=== PATIENT | male | born 1985 | race Caucasian/White ===

== ENCOUNTER 2022-05-03 13:09 | Outpatient (REF) | payer OTHER, MEDICARE, SELFPAY ==
--- NOTE | 2022-05-03 | ECG_ITS ---
Test Reason : PREOP Blood Pressure : / mmHG Vent. Rate : 065 BPM Atrial Rate : 065 BPM P-R Int : 196 ms QRS Dur : 094 ms QT Int : 424 ms P-R-T Axes : 008 060 027 degrees QTc Int : 440 ms Normal sinus rhythm Normal ECG No previous ECGs available Referred By: Maurisio Benton Electronically Signed By:EVE GILBERT
[2022-05-03 13:27] LABS: MANUAL DIFF FLAG NO
[2022-05-03 14:20] LABS: Basophils Percent Auto 0.5 % (0-2); Eosinophils Absolute Auto 0.1 X10*3/uL (0.0-0.4); Eosinophils Percent Auto 1.5 % (0-4); Hematocrit 45.4 % (42.0-52.0); Hemoglobin 16.3 g/dl (14.0-18.0); Imm Gran Abs Auto 0.04 X10*3/uL (0.00-0.03); Imm Gran Pct Auto 0.6 % (0.0-0.4); Lymphocytes Absolute Auto 2.3 X10*3/uL (1.2-4.9); Lymphocytes Percent Auto 34.6 % (20-40); Mean Corpuscular HGB Conc 35.9 g/dl (31.0-36.0); Mean Corpuscular Hemoglobin 31.2 pg (27.0-33.0); Mean Platelet Volume 10.1 fL (9.4-12.4); Monocytes Absolute Auto 0.5 X10*3/uL (0.1-1.2); Monocytes Percent Auto 6.8 % (2-11); Neutrophils Absolute Auto 3.7 x10*3/uL (2.0-8.3); Platelet Count 250 X10*3/uL (160-400); Red Blood Count 5.22 X10*6/uL (4.60-5.80); Red Cell Distribution Width 12.8 % (11.0-16.0); White Blood Count 6.6 X10*3/uL (4.8-10.8)
[2022-05-03 14:50] LABS: Alanine Aminotransferase 12 U/L (0-40); Alkaline Phosphatase 96 U/L (39-117); Anion Gap 17 (12-20); Aspartate Amino Transferase 13 U/L (5-37); Bilirubin Total 0.8 mg/dL (0.0-1.0); Blood Urea Nitrogen 16 mg/dL (9-16); Calcium 9.6 mg/dL (8.4-10.2); Carbon Dioxide 21 mmol/L (22-29); Chloride 105 mmol/L (96-108); Estimated Glomerular Filt Rate > 60; Glucose Random 91 mg/dL (60-115); Potassium 4.1 mmol/L (3.3-5.1); Sodium 139 mmol/L (135-145); Total Protein 7.8 g/dL (6.5-8.0)
[2022-05-03 15:02] LABS: Thyroid Stimulating Hormone 1.96 uIU/mL (0.32-4.0)
== END 2022-05-03 13:10 | disposition home or self-care (01) ==
LOC: HO.LAB 13:09
PROVIDERS: Visit Provider Psychiatry & Neurology Psychiatry
DX: Z01.818 Encounter for other preprocedural examination (principal); F33.2 Major depressive disorder, recurrent severe without psychotic features; F43.10 Post-traumatic stress disorder, unspecified
CPT/HCPCS: 36415; 80053; 84443; 85025; 93005

== ENCOUNTER 2022-05-22 05:47 | Day surgery (SDC) | payer OTHER, SELFPAY ==
[2022-05-22] VITALS (7 sets, daily range): BP systolic 123–160; BP diastolic 83–105; PULSE 68–84; RESP 12–20; TEMP 36.2–36.9; O2SAT 92–96; BMI 38.0
[2022-05-22 06:50] LABS: COVID-19 Test Negative (Negative); IDNOW Serial# 55D5AD1C
--- NOTE | 2022-05-22 06:50 | P.CONAN_ITS ---
[facility] Family History Family history of problems with anesthesia: No Surgical History History of Problems with Anesthesia: No Social History Social History Patient Tobacco Use Status: Current everyday Tobacco user Tobacco use type: Cigarette Are you DNR?: No Advance Directives: No Advance Directives Information Provided: Yes Meds Allergies Allergy/AdvReac Type Severity Reaction Status Date / Time divalproex sodium Allergy Unknown Verified 05/22/22 06:13 [From [facility]] Exam Exam Date and Time: May 22, 2022 0650 Height,Weight and Vital Signs: Height 6 ft Weight 127.006 kg Last Vital Signs Temp 97.1 F 05/22/22 06:44 Pulse 68 05/22/22 06:44 Resp 14 05/22/22 06:44 BP 123/83 05/22/22 06:44 Pulse Ox 96 05/22/22 06:44 O2 Del Method 05/22/22 06:44 Airway Mallampati Class: III (Narrow palate, implant 3 (2 front top, one back top), perm bridge lower left) TM Dist: >3cm Neck ROM: Full Heart: rrr Lungs: cta Assessment and Plan Assessment Anesthesia Assessment: Anesthesia Plan Discussed (Reviewed history, mo cardiac, respiratory, DM one psychological condition) and Chart Reviewed Final Anesthetic Review Family History of Problems with Anesthesia: No History of Problems with Anesthesia: No NPO: Yes ASA Class: III Final Preanesthetic Review: No Changes in Pt Med Stat, Meds/Allgs Chart Reviewed and Consent Obtained/Reviewed Patient Risk: Intermediate Procedure Risk: Intermediate Anesthetic Plan Anesthetic Plan: GA Disposition: Standard PACU
--- NOTE | 2022-05-22 07:14 | P.HPSUR_ITS ---
Pre-Procedural Eval Section A Date of Service: 05/22/22 The patient is an INPATIENT: No Changes since office visit: Yes Cold of Flu in the past 2 weeks, Yes New Medical Problems, Yes Changes in Medication and Yes Patient answered all questions The History & Physical has been completed within 30 days and I have reviewed it.: Yes Section B Chief Complaint: depression Details of Present Illness: Hx of depression, new course of ECT Relevant Family History (Specify if Yes): Yes Relevant Social History: None Present Medications: None Medical History: No relevant PMH History of Previous Operations: No relevant previous surgery Allergies: Allergies Allergy/AdvReac Type Severity Reaction Status Date / Time divalproex sodium Allergy Unknown Verified 05/22/22 06:13 [From [facility]] Review of Systems Sugical H&P ROS: Negative: Constitution, Cardiovascular, Respiratory, Neurological, Psychiatric, Hem-Onc, Allergic/Immunologic, Gastrointestinal, Genitourinary, Musculoskeletal, Integumentary, Endocrine and Eyes/Ears/Nose/Throat Exam Surgical H&P Exam: Normal: HEENT, Normal: Heart, Normal: Lungs, Normal: Extr emities, Normal: Abdomen, Normal: Skin and Normal: Neurological Plan Diagnosis/Plan: Unchanged I have reviewed the history and physical and performed a pertinent physical examination on my patient. No changes have occurred unless specified.
--- NOTE | 2022-05-22 07:53 | HO.ECTPROC ---
ECT Procedure Note Diagnosis/Treatment Date of Service: 05/22/22 Diagnosis: Bipolar disorder Current Treatment Number: 1 Treatment: Series Interval Clinical Notes: The patient reported episode of depression, antidepressants worsened his mood with arlette. No prior ECTs. Currently on Gabapentin and Vraylar. ECT Settings Device: THYMATRON DGx Electrode Placement: Right Unilateral Program/Pulse Width: 0.25 Energy Percent: 100 Seizure Duration By EEG (in seconds): 31 By Motor Observation (in seconds): 22 Medications Administration General Anesthetic: Etomidate (18) Muscle Relaxant: Succinylcholine (100) Ancillary Medications Analgesics: Torodol - Pre ECT Anti-emetics: Zofran - Pre ECT Miscillaneous Medications: Propofol and Midazolam Airway Management Airway Management: Bag Mask Ventilation Treatment Recommendations No Changes Recommended: No change Pt Tolerated Procedure w/o Issue: Yes
== END 2022-05-22 09:16 | disposition home or self-care (01) ==
PROVIDERS: Visit Provider Psychiatry & Neurology Psychiatry
PROC: (CPT 90870; principal; 2022-05-22 14:30)
DX: F31.4 Bipolar disorder, current episode depressed, severe, without psychotic features (principal); F43.10 Post-traumatic stress disorder, unspecified; Z79.899 Other long term (current) drug therapy; Z88.8 Allergy status to other drugs, medicaments and biological substances; F17.210 Nicotine dependence, cigarettes, uncomplicated
CPT/HCPCS: 87635; 90870; J0330; J1885; J2250; J2405

== ENCOUNTER 2022-05-24 05:46 | Day surgery (SDC) | payer OTHER, SELFPAY ==
[2022-05-24 06:37] VITALS: BP 135/88; PULSE 70; RESP 18; TEMP 36.4; O2SAT 97; BMI 38.0
[2022-05-24 06:48] LABS: COVID-19 Test Negative (Negative); IDNOW Serial# 9DB6401D
--- NOTE | 2022-05-24 07:21 | P.HPSUR_ITS ---
Pre-Procedural Eval Section A Date of Service: 05/24/22 The patient is an INPATIENT: No Changes since office visit: Yes New Medical Problems and Yes Patient answered all questions; No Cold of Flu in the past 2 weeks and No Changes in Medication The History & Physical has been completed within 30 days and I have reviewed it.: Yes Section B Chief Complaint: depression Allergies: Allergies Allergy/AdvReac Type Severity Reaction Status Date / Time divalproex sodium Allergy Unknown Verified 05/22/22 06:13 [From [facility]] Plan I have reviewed the history and physical and performed a pertinent physical examination on my patient. No changes have occurred unless specified.
--- NOTE | 2022-05-24 07:55 | HO.ECTPROC ---
ECT Procedure Note Diagnosis/Treatment Date of Service: 05/24/22 Diagnosis: Bipolar disorder Previous ECT Date: 05/22/22 Current Treatment Number: 2 Treatment: Series ECT Settings Device: THYMATRON DGx Electrode Placement: Bifrontal (changed to Bifrontal since pt required increase doses of etomidate (38mg) and Propofol (50mg). ) Program/Pulse Width: 0.50 Energy Percent: 100 Seizure Duration By EEG (in seconds): 72 Medications Administration General Anesthetic: Etomidate (18mg + 20g) and Propofol (50mg pre and 50mg post) Muscle Relaxant: Succinylcholine (120mg+60mg) Ancillary Medications Analgesics: Torodol - Pre ECT Anti-emetics: Zofran - Pre ECT Cardiovascular Medications: Glycopyrrolate (pre) Miscillaneous Medications: Midazolam (2mg) Airway Management Airway Management: Bag Mask Ventilation Treatment Recommendations Electrode Placement: Right Unilateral Program/Pulse Width: 0.50 Energy Percent: 100 Notes: pt told to hold gabapentin at nightime prior to procedure (and morning of) Can change back to Right Unilateral with 0.5 pulse width. Switched to BiFrontal since patient required increased doses of Etomidate and then Propofol. for next tx, recomended doses: Etomidate 20mg Suc 160mg (+/- brooklynn 5mg)
[2022-05-24 08:05] VITALS: BP 136/85; PULSE 80; RESP 20; TEMP 36.9; O2SAT 95
[2022-05-24 08:10] VITALS: BP 140/75; PULSE 90; RESP 20; O2SAT 94
[2022-05-24 08:15] VITALS: BP 125/82; PULSE 74; RESP 17; O2SAT 94
--- NOTE | 2022-05-24 08:19 | P.CONAN_ITS ---
[facility] Past Medical History Medical History (Updated 05/22/22 @ 07:23 by Cathryn Gallegos RN) Bipolar 1 disorder PTSD (post-traumatic stress disorder) Family History Family history of problems with anesthesia: No Surgical History Surgical History (Updated 05/22/22 @ 07:24 by Cathryn Gallegos RN) History of mandibular surgery History of Problems with Anesthesia: No Social History Social History Patient Tobacco Use Status: Current everyday Tobacco user Tobacco use type: Cigarette Advance Directives: No Advance Directives Information Provided: Yes Meds Allergies Allergy/AdvReac Type Severity Reaction Status Date / Time divalproex sodium Allergy Unknown Verified 05/22/22 06:13 [[facility]] Exam Exam Date and Time: May 24, 2022 0819 Height,Weight and Vital Signs: Height 6 ft Weight 127.006 kg Last Vital Signs Temp 98.5 F 05/24/22 08:05 Pulse 90 05/24/22 08:10 Resp 20 05/24/22 08:10 BP 140/75 H 05/24/22 08:10 Pulse Ox 94 05/24/22 08:10 O2 Del Method 05/24/22 08:10 O2 Flow Rate 3 05/24/22 08:10 Pertinent Lab Results Pertinent Lab Results: Laboratory Tests 05/24/22 06:15 COVID-19 ([facility]) Negative COVID-19 Clin Com See Note Airway Mallampati Class: III TM Dist: >3cm Neck ROM: Full Assessment and Plan Assessment Anesthesia Assessment: Anesthesia Plan Discussed and Chart Reviewed Final Anesthetic Review Family History of Problems with Anesthesia: No History of Problems with Anesthesia: No NPO: Yes ASA Class: III Final Preanesthetic Review: No Changes in Pt Med Stat, Meds/Allgs Chart Reviewed, Consent Obtained/Reviewed and Anes Risks/Benef Reviewed Patient Risk: Intermediate Procedure Risk: Intermediate Anesthetic Plan Anesthetic Plan: GA Disposition: Standard PACU
[2022-05-24 08:20] VITALS: BP 125/79; PULSE 75; RESP 16; O2SAT 95
[2022-05-24 08:35] VITALS: BP 127/72; PULSE 72; RESP 16; TEMP 36.9; O2SAT 95
== END 2022-05-24 09:14 ==
LOC: HO.SSS 05:47
PROVIDERS: Visit Provider Psychiatry & Neurology Psychiatry
PROC: (CPT 90870; principal; 2022-05-24 07:30)
DX: F31.4 Bipolar disorder, current episode depressed, severe, without psychotic features (principal); F43.10 Post-traumatic stress disorder, unspecified; Z79.899 Other long term (current) drug therapy; F17.210 Nicotine dependence, cigarettes, uncomplicated; Z88.8 Allergy status to other drugs, medicaments and biological substances; Z20.822 Contact with and (suspected) exposure to COVID-19
CPT/HCPCS: 87635; 90870; J0330; J1885; J2250; J2405

== ENCOUNTER 2022-05-26 05:49 | Day surgery (SDC) | payer OTHER, SELFPAY ==
[2022-05-26 06:52] LABS: COVID-19 Test Negative (Negative); IDNOW Serial# 16C4AD1C
--- NOTE | 2022-05-26 07:05 | P.CONAN_ITS ---
[facility] Past Medical History Medical History (Updated 05/22/22 @ 07:23 by Cathryn Gallegos RN) Bipolar 1 disorder PTSD (post-traumatic stress disorder) Family History Family history of problems with anesthesia: No Surgical History Surgical History (Updated 05/22/22 @ 07:24 by Cathryn Gallegos RN) History of mandibular surgery History of Problems with Anesthesia: No Social History Social History Patient Tobacco Use Status: Current everyday Tobacco user Tobacco use type: Cigarette Advance Directives: No Advance Directives Information Provided: Yes Meds Allergies Allergy/AdvReac Type Severity Reaction Status Date / Time divalproex sodium Allergy Unknown Verified 05/22/22 06:13 [From Depakote] Exam Exam Date and Time: May 26, 2022 07 Pertinent Lab Results Pertinent Lab Results: Laboratory Tests 05/26/22 06:20 COVID-19 ([facility]) Negative COVID-19 Clin Com See Note Airway Mallampati Class: II (Implant top front 3, bridge perm ) TM Dist: >3cm Neck ROM: Full Heart: rrr Lungs: cta Assessment and Plan Assessment Anesthesia Assessment: Anesthesia Plan Discussed and Chart Reviewed Final Anesthetic Review Family History of Problems with Anesthesia: No History of Problems with Anesthesia: No NPO: Yes ASA Class: III Final Preanesthetic Review: No Changes in Pt Med Stat, Meds/Allgs Chart Reviewed and Consent Obtained/Reviewed Patient Risk: Intermediate Procedure Risk: Intermediate Anesthetic Plan Anesthetic Plan: GA Disposition: Standard PACU
[2022-05-26 07:11] VITALS: BMI 38.0
--- NOTE | 2022-05-26 07:46 | MHC.SHP ---
Pre-Procedural Eval Section A Date of Service: 05/26/22 The patient is an INPATIENT: No Changes since office visit: Yes Patient answered all questions; No Cold of Flu in the past 2 weeks, No New Medical Problems and No Changes in Medication The History & Physical has been completed within 30 days and I have reviewed it.: Yes Section B Chief Complaint: depression Allergies: Allergies Allergy/AdvReac Type Severity Reaction Status Date / Time divalproex sodium Allergy Unknown Verified 05/22/22 06:13 [From [facility]] Plan I have reviewed the history and physical and performed a pertinent physical examination on my patient. No changes have occurred unless specified.
--- NOTE | 2022-05-26 07:47 | HO.ECTPROC ---
ECT Procedure Note Diagnosis/Treatment Date of Service: 05/26/22 Diagnosis: Bipolar disorder Previous ECT Date: 05/24/22 Current Treatment Number: 3 Treatment: Series Interval Clinical Notes: pt feeling somewhat better no c/o side effects ECT Settings Device: THYMATRON DGx Electrode Placement: Bifrontal (changed to Bifrontal since pt required increase doses of etomidate (38mg) and Propofol (50mg). ) Program/Pulse Width: 0.50 Energy Percent: 100 Medications Administration General Anesthetic: Etomidate (20) Muscle Relaxant: Succinylcholine (160 mg ) and Rocuronium (5mg) Ancillary Medications Analgesics: Torodol - Pre ECT Anti-emetics: Zofran - Pre ECT Cardiovascular Medications: Glycopyrrolate (pre) Miscillaneous Medications: Propofol and Midazolam (2mg) Airway Management Airway Management: Bag Mask Ventilation Treatment Recommendations Electrode Placement: Right Unilateral Program/Pulse Width: 0.50 Energy Percent: 100 Notes: continue tx bf
[2022-05-26 08:05] VITALS: BP 142/77; PULSE 87; RESP 16; TEMP 36.8; O2SAT 95
[2022-05-26 08:10] VITALS: BP 141/88; PULSE 77; RESP 14; O2SAT 96
[2022-05-26 08:15] VITALS: BP 120/73; PULSE 74; RESP 18; O2SAT 94
[2022-05-26 08:19] VITALS: BP 130/77; PULSE 80; RESP 13; O2SAT 95
[2022-05-26 08:34] VITALS: BP 139/76; PULSE 76; RESP 12; O2SAT 94
[2022-05-26 08:47] VITALS: BP 132/90; PULSE 74; RESP 15; TEMP 36.8; O2SAT 95
== END 2022-05-26 09:02 | disposition home or self-care (01) ==
PROVIDERS: Visit Provider Psychiatry & Neurology Psychiatry
PROC: (CPT 90870; principal; 2022-05-26 08:00)
DX: F31.4 Bipolar disorder, current episode depressed, severe, without psychotic features (principal); F43.10 Post-traumatic stress disorder, unspecified; Z79.899 Other long term (current) drug therapy; Z88.8 Allergy status to other drugs, medicaments and biological substances; F17.210 Nicotine dependence, cigarettes, uncomplicated; Z20.822 Contact with and (suspected) exposure to COVID-19
CPT/HCPCS: 87635; 90870; J0330; J1885; J2250; J2405

== ENCOUNTER 2022-05-29 06:10 | Day surgery (SDC) | payer OTHER, SELFPAY ==
[2022-05-29] VITALS (7 sets, daily range): BP systolic 118–146; BP diastolic 64–91; PULSE 74–87; RESP 10–21; TEMP 35.8–36.6; O2SAT 95; BMI 38.0
[2022-05-29 06:46] LABS: COVID-19 Test Negative (Negative); IDNOW Serial# 16C4AD1C
--- NOTE | 2022-05-29 06:52 | P.CONAN_ITS ---
[facility] Past Medical History Medical History (Updated 05/22/22 @ 07:23 by Cathryn Gallegos RN) Bipolar 1 disorder PTSD (post-traumatic stress disorder) Family History Family history of problems with anesthesia: No Surgical History Surgical History (Updated 05/22/22 @ 07:24 by Cathryn Gallegos RN) History of mandibular surgery History of Problems with Anesthesia: No Social History Social History Patient Tobacco Use Status: Current everyday Tobacco user Tobacco use type: Cigarette Advance Directives: No Advance Directives Information Provided: Yes Meds Allergies Allergy/AdvReac Type Severity Reaction Status Date / Time divalproex sodium Allergy Unknown Verified 05/22/22 06:13 [From Depakote] Exam Exam Date and Time: May 29, 2022 0652 Height,Weight and Vital Signs: Height 6 ft Weight 127.006 kg Last Vital Signs Temp 96.4 F L 05/29/22 06:27 Pulse 74 05/29/22 06:27 Resp 18 05/29/22 06:27 BP 141/65 H 05/29/22 06:27 Pulse Ox 95 05/29/22 06:27 O2 Del Method 05/29/22 06:27 Pertinent Lab Results Pertinent Lab Results: Laboratory Tests 05/29/22 06:14 COVID-19 ([facility]) Negative COVID-19 Clin Com See Note Airway Mallampati Class: II (Bridgetop, caps and imolant in front) TM Dist: >3cm Neck ROM: Full Heart: rrr Lungs: cta Assessment and Plan Assessment Anesthesia Assessment: Anesthesia Plan Discussed and Chart Reviewed Final Anesthetic Review Family History of Problems with Anesthesia: No History of Problems with Anesthesia: No NPO: Yes ASA Class: III Final Preanesthetic Review: No Changes in Pt Med Stat, Meds/Allgs Chart Reviewed and Consent Obtained/Reviewed Patient Risk: Intermediate Procedure Risk: Intermediate Anesthetic Plan Anesthetic Plan: GA Disposition: Standard PACU
--- NOTE | 2022-05-29 07:12 | P.HPSUR_ITS ---
Pre-Procedural Eval Section A Date of Service: 05/29/22 The patient is an INPATIENT: No Changes since office visit: Yes Changes in Medication and Yes Patient answered all questions; No Cold of Flu in the past 2 weeks and No New Medical Problems The History & Physical has been completed within 30 days and I have reviewed it.: Yes Section B Chief Complaint: depression Allergies: Allergies Allergy/AdvReac Type Severity Reaction Status Date / Time divalproex sodium Allergy Unknown Verified 05/22/22 06:13 [From [facility]] Plan I have reviewed the history and physical and performed a pertinent physical examination on my patient. No changes have occurred unless specified.
--- NOTE | 2022-05-29 07:13 | HO.ECTPROC ---
ECT Procedure Note Diagnosis/Treatment Date of Service: 05/29/22 Diagnosis: Bipolar disorder Previous ECT Date: 05/29/22 Current Treatment Number: 4 Treatment: Series Interval Clinical Notes: no changes; pt feeling better; no complaints of side-effects ECT Settings Device: THYMATRON DGx Electrode Placement: Bifrontal Program/Pulse Width: 0.50 Energy Percent: 100 Seizure Duration By EEG (in seconds): 33 Medications Administration General Anesthetic: Etomidate (20mg) Muscle Relaxant: Succinylcholine (160mg) and Rocuronium (5mg) Ancillary Medications Analgesics: Torodol - Pre ECT (30mg) and Other Anti-emetics: Zofran - Pre ECT (4mg) Cardiovascular Medications: Glycopyrrolate (0.4mg pre) Miscillaneous Medications: Propofol (30mg post) and Midazolam (2mg Post) Airway Management Airway Management: Bag Mask Ventilation Treatment Recommendations No Changes Recommended: No change Notes: continue current tx regimen Pt Tolerated Procedure w/o Issue: Yes
[2022-05-29] MEDS: ondansetron HCL 4 MG/2 ML VIAL IVPUSH (08:20)
== END 2022-05-29 08:52 | disposition home or self-care (01) ==
PROVIDERS: Visit Provider Psychiatry & Neurology Psychiatry
PROC: (CPT 90870; principal; 2022-05-29 07:00)
DX: F31.4 Bipolar disorder, current episode depressed, severe, without psychotic features (principal); F43.10 Post-traumatic stress disorder, unspecified; Z88.8 Allergy status to other drugs, medicaments and biological substances; Z79.899 Other long term (current) drug therapy; F17.210 Nicotine dependence, cigarettes, uncomplicated; Z20.822 Contact with and (suspected) exposure to COVID-19
CPT/HCPCS: 87635; 90870; J0330; J1885; J2250; J2405

== ENCOUNTER 2022-05-31 05:46 | Day surgery (SDC) | payer OTHER, SELFPAY ==
[2022-05-31 06:31] VITALS: BP 126/68; PULSE 65; RESP 16; TEMP 36.3; O2SAT 96; BMI 5565.4
--- NOTE | 2022-05-31 06:39 | HO.ANESPROP2 ---
[facility] Past Medical History Medical History (Updated 05/22/22 @ 07:23 by Cathryn Gallegos RN) Bipolar 1 disorder PTSD (post-traumatic stress disorder) Family History Family history of problems with anesthesia: No Surgical History Surgical History (Updated 05/22/22 @ 07:24 by Cathryn Gallegos RN) History of mandibular surgery History of Problems with Anesthesia: No Social History Social History Patient Tobacco Use Status: Current everyday Tobacco user Tobacco use type: Cigarette Advance Directives: No Advance Directives Information Provided: Yes Meds Allergies Allergy/AdvReac Type Severity Reaction Status Date / Time divalproex sodium Allergy Unknown Verified 05/22/22 06:13 [From [facility]] Exam Exam Date and Time: May 31, 2022 0639 Height,Weight and Vital Signs: Height 6 in Weight 129.274 kg Last Vital Signs Temp 97.4 F 05/31/22 06:31 Pulse 65 05/31/22 06:31 Resp 16 05/31/22 06:31 BP 126/68 05/31/22 06:31 Pulse Ox 96 05/31/22 06:31 O2 Del Method 05/31/22 06:31 Airway Mallampati Class: II (Implantnand caps on too front) TM Dist: >3cm Neck ROM: Full Heart: rrr Lungs: cta Assessment and Plan Assessment Anesthesia Assessment: Anesthesia Plan Discussed and Chart Reviewed Final Anesthetic Review Family History of Problems with Anesthesia: No History of Problems with Anesthesia: No NPO: Yes ASA Class: III Final Preanesthetic Review: No Changes in Pt Med Stat, Meds/Allgs Chart Reviewed and Consent Obtained/Reviewed Patient Risk: Intermediate Procedure Risk: Intermediate Anesthetic Plan Anesthetic Plan: GA Disposition: Standard PACU
[2022-05-31 06:51] LABS: COVID-19 Test Negative (Negative); IDNOW Serial# 16C4AD1C
--- NOTE | 2022-05-31 06:57 | P.HPSUR_ITS ---
Pre-Procedural Eval Section A Date of Service: 05/31/22 The patient is an INPATIENT: No Changes since office visit: No Cold of Flu in the past 2 weeks, No New Medical Problems, No Changes in Medication and No Patient answered all questions The History & Physical has been completed within 30 days and I have reviewed it.: Yes Section B Chief Complaint: depression Allergies: Allergies Allergy/AdvReac Type Severity Reaction Status Date / Time divalproex sodium Allergy Unknown Verified 05/22/22 06:13 [From [facility]] Plan I have reviewed the history and physical and performed a pertinent physical examination on my patient. No changes have occurred unless specified.
--- NOTE | 2022-05-31 07:22 | HO.ECTPROC ---
ECT Procedure Note Diagnosis/Treatment Date of Service: 05/31/22 Diagnosis: Bipolar disorder Previous ECT Date: 05/29/22 Current Treatment Number: 5 Treatment: Series Interval Clinical Notes: The patient reported improvement of dysphoria with ECT. Denies side effects, content with the treatment, feeling hopeful that he would be better soon. ECT Settings Device: THYMATRON DGx Electrode Placement: Bifrontal Program/Pulse Width: 0.50 Energy Percent: 100 Seizure Duration By EEG (in seconds): 51 By Motor Observation (in seconds): 48 Medications Administration General Anesthetic: Etomidate (20) and Propofol Muscle Relaxant: Succinylcholine (160) and Rocuronium (5) Ancillary Medications Analgesics: Torodol - Pre ECT Anti-emetics: Zofran - Pre ECT Cardiovascular Medications: Glycopyrrolate Miscillaneous Medications: Midazolam Airway Management Airway Management: Bag Mask Ventilation Treatment Recommendations No Changes Recommended: No change Pt Tolerated Procedure w/o Issue: Yes
[2022-05-31 07:30] VITALS: BP 127/70; PULSE 75; RESP 16; TEMP 36.6; O2SAT 94
[2022-05-31 07:35] VITALS: BP 131/79; PULSE 74; RESP 14; O2SAT 94
[2022-05-31 07:40] VITALS: BP 128/70; PULSE 79; RESP 17; O2SAT 95
[2022-05-31 07:46] VITALS: BP 134/69; PULSE 73; RESP 16; O2SAT 95
[2022-05-31 08:02] VITALS: BP 127/72; PULSE 75; RESP 18; TEMP 36.7; O2SAT 96
== END 2022-05-31 09:08 | disposition home or self-care (01) ==
PROVIDERS: Visit Provider Psychiatry & Neurology Psychiatry
PROC: (CPT 90870; principal; 2022-05-31 07:00)
DX: F31.4 Bipolar disorder, current episode depressed, severe, without psychotic features (principal); F43.10 Post-traumatic stress disorder, unspecified; Z88.8 Allergy status to other drugs, medicaments and biological substances; F17.210 Nicotine dependence, cigarettes, uncomplicated; Z20.822 Contact with and (suspected) exposure to COVID-19
CPT/HCPCS: 87635; 90870; J0330; J1885; J2250; J2405

== ENCOUNTER 2022-06-02 05:44 | Day surgery (SDC) | payer OTHER, SELFPAY ==
[2022-06-02] VITALS (7 sets, daily range): BP systolic 118–165; BP diastolic 76–113; PULSE 67–126; RESP 12–18; TEMP 36.3–36.8; O2SAT 95–99; BMI 38.6
[2022-06-02 06:40] LABS: COVID-19 Test Negative (Negative); IDNOW Serial# 16C4AD1C
--- NOTE | 2022-06-02 06:46 | P.CONAN_ITS ---
[facility] Past Medical History Medical History (Updated 05/22/22 @ 07:23 by Cathryn Gallegos RN) Bipolar 1 disorder PTSD (post-traumatic stress disorder) Family History Family history of problems with anesthesia: No Surgical History Surgical History (Updated 05/22/22 @ 07:24 by Cathryn Gallegos RN) History of mandibular surgery History of Problems with Anesthesia: No Social History Social History Patient Tobacco Use Status: Current everyday Tobacco user Tobacco use type: Cigarette Advance Directives: No Advance Directives Information Provided: Yes Meds Allergies Allergy/AdvReac Type Severity Reaction Status Date / Time divalproex sodium Allergy Unknown Verified 05/22/22 06:13 [From Depak[facility]] Active Medications: Current Medications Lactated Ringer's (Lr) 1,000 mls @ 50 mls/hr IVCONT .Q20H LUIS Exam Exam Date and Time: June 02, 2022 0646 Pertinent Lab Results Pertinent Lab Results: Laboratory Tests 06/02/22 06:11 COVID-19 ([facility]) Negative COVID-19 Clin Com See Note Airway Mallampati Class: II (Implant perm bridge on top) TM Dist: >3cm Neck ROM: Full Heart: rrr Lungs: cta Assessment and Plan Assessment Anesthesia Assessment: Anesthesia Plan Discussed and Chart Reviewed Final Anesthetic Review Family History of Problems with Anesthesia: No History of Problems with Anesthesia: No NPO: Yes ASA Class: III Final Preanesthetic Review: No Changes in Pt Med Stat, Meds/Allgs Chart Reviewed and Consent Obtained/Reviewed Patient Risk: Intermediate Procedure Risk: Intermediate Anesthetic Plan Anesthetic Plan: GA Disposition: Standard PACU
--- NOTE | 2022-06-02 07:51 | MHC.SHP ---
Pre-Procedural Eval Section A Date of Service: 06/02/22 The patient is an INPATIENT: No Changes since office visit: Yes Cold of Flu in the past 2 weeks, Yes New Medical Problems, Yes Changes in Medication and Yes Patient answered all questions The History & Physical has been completed within 30 days and I have reviewed it.: Yes Section B Chief Complaint: depression Allergies: Allergies Allergy/AdvReac Type Severity Reaction Status Date / Time divalproex sodium Allergy Unknown Verified 05/22/22 06:13 [From [facility]] Plan I have reviewed the history and physical and performed a pertinent physical examination on my patient. No changes have occurred unless specified.
--- NOTE | 2022-06-02 08:15 | HO.ECTPROC ---
ECT Procedure Note Diagnosis/Treatment Date of Service: 06/02/22 Diagnosis: Bipolar disorder Previous ECT Date: 06/02/22 Current Treatment Number: 6 Treatment: Series Interval Clinical Notes: The patient reported improvment of his depression, no side effects. ECT Settings Device: THYMATRON DGx Electrode Placement: Bitemporal Program/Pulse Width: 0.50 Energy Percent: 100 Seizure Duration By EEG (in seconds): 59 By Motor Observation (in seconds): 41 Medications Administration General Anesthetic: Etomidate (20) and Propofol Muscle Relaxant: Succinylcholine (160) and Rocuronium (5) Ancillary Medications Analgesics: Torodol - Pre ECT Anti-emetics: Zofran - Pre ECT Cardiovascular Medications: Glycopyrrolate (pre and post ECT due to excessive salivation after ECT) Miscillaneous Medications: Midazolam Airway Management Airway Management: Bag Mask Ventilation Treatment Recommendations No Changes Recommended: No change Pt Tolerated Procedure w/o Issue: Yes
== END 2022-06-02 09:51 | disposition home or self-care (01) ==
PROVIDERS: Visit Provider Psychiatry & Neurology Psychiatry
PROC: (CPT 90870; principal; 2022-06-02 07:00)
DX: F31.4 Bipolar disorder, current episode depressed, severe, without psychotic features (principal); F43.10 Post-traumatic stress disorder, unspecified; Z88.8 Allergy status to other drugs, medicaments and biological substances; F17.210 Nicotine dependence, cigarettes, uncomplicated; Z20.822 Contact with and (suspected) exposure to COVID-19
CPT/HCPCS: 87635; 90870; J0330; J1885; J2250; J2405

== ENCOUNTER 2022-06-07 05:55 | Day surgery (SDC) | payer OTHER, SELFPAY ==
[2022-06-07] VITALS (7 sets, daily range): BP systolic 139–155; BP diastolic 88–95; PULSE 70–83; RESP 12–18; TEMP 36.4–36.6; O2SAT 93–98; BMI 35.9
[2022-06-07 06:39] LABS: COVID-19 Test Negative (Negative); IDNOW Serial# 16C4AD1C
--- NOTE | 2022-06-07 06:43 | P.CONAN_ITS ---
[facility] Past Medical History Medical History (Updated 05/22/22 @ 07:23 by Cathryn Gallegos RN) Bipolar 1 disorder PTSD (post-traumatic stress disorder) Family History Family history of problems with anesthesia: No Surgical History Surgical History (Updated 05/22/22 @ 07:24 by Cathryn Gallegos RN) History of mandibular surgery History of Problems with Anesthesia: No Social History Social History Patient Tobacco Use Status: Current everyday Tobacco user Tobacco use type: Cigarette Advance Directives: No Advance Directives Information Provided: Yes Meds Allergies Allergy/AdvReac Type Severity Reaction Status Date / Time divalproex sodium Allergy Unknown Verified 05/22/22 06:13 [From Depakote] Exam Exam Date and Time: June 07, 2022 0643 Height,Weight and Vital Signs: Height 6 ft Weight 120.202 kg Last Vital Signs Temp 97.6 F 06/07/22 06:31 Pulse 70 06/07/22 06:31 Resp 18 06/07/22 06:31 BP 155/95 H 06/07/22 06:31 Pulse Ox 94 06/07/22 06:31 O2 Del Method 06/07/22 06:31 Pertinent Lab Results Pertinent Lab Results: Laboratory Tests 06/07/22 06:17 COVID-19 ([facility]) Negative COVID-19 Clin Com See Note Airway Mallampati Class: II (Perm upper bridge, implant caps) TM Dist: >3cm Neck ROM: Full Heart: rrr Lungs: cta Assessment and Plan Assessment Anesthesia Assessment: Anesthesia Plan Discussed and Chart Reviewed Final Anesthetic Review Family History of Problems with Anesthesia: No History of Problems with Anesthesia: No NPO: Yes ASA Class: III Final Preanesthetic Review: No Changes in Pt Med Stat, Meds/Allgs Chart Reviewed and Consent Obtained/Reviewed Patient Risk: Intermediate Procedure Risk: Intermediate Anesthetic Plan Anesthetic Plan: GA Disposition: Standard PACU
--- NOTE | 2022-06-07 07:53 | MHC.SHP ---
Pre-Procedural Eval Section A Date of Service: 06/07/22 The patient is an INPATIENT: No Changes since office visit: Yes Cold of Flu in the past 2 weeks, Yes New Medical Problems, Yes Changes in Medication and Yes Patient answered all questions The History & Physical has been completed within 30 days and I have reviewed it.: No Section B Chief Complaint: depression Allergies: Allergies Allergy/AdvReac Type Severity Reaction Status Date / Time divalproex sodium Allergy Unknown Verified 05/22/22 06:13 [From [facility]] Plan I have reviewed the history and physical and performed a pertinent physical examination on my patient. No changes have occurred unless specified.
--- NOTE | 2022-06-07 08:09 | HO.ECTPROC ---
ECT Procedure Note Diagnosis/Treatment Date of Service: 06/07/22 Diagnosis: Bipolar disorder Previous ECT Date: 06/02/22 Current Treatment Number: 7 Treatment: Series Interval Clinical Notes: The patient reported improvement of depression with ECT. No side effects reported, feeling better. ECT Settings Device: THYMATRON DGx Electrode Placement: Bifrontal Program/Pulse Width: 0.50 Energy Percent: 100 Seizure Duration By EEG (in seconds): 47 By Motor Observation (in seconds): 40 Medications Administration General Anesthetic: Etomidate (20) Muscle Relaxant: Succinylcholine (160) and Rocuronium (5) Ancillary Medications Anti-emetics: Zofran - Pre ECT Miscillaneous Medications: Propofol and Midazolam Airway Management Airway Management: Bag Mask Ventilation Treatment Recommendations No Changes Recommended: No change Pt Tolerated Procedure w/o Issue: Yes
== END 2022-06-07 09:20 | disposition home or self-care (01) ==
PROVIDERS: Visit Provider Psychiatry & Neurology Psychiatry
PROC: (CPT 90870; principal; 2022-06-07 07:00)
DX: F31.9 Bipolar disorder, unspecified (principal); F43.10 Post-traumatic stress disorder, unspecified; Z88.8 Allergy status to other drugs, medicaments and biological substances; F17.210 Nicotine dependence, cigarettes, uncomplicated; Z20.822 Contact with and (suspected) exposure to COVID-19
CPT/HCPCS: 87635; 90870; J0330; J1885; J2250; J2405

== ENCOUNTER 2022-06-09 05:42 | Day surgery (SDC) | payer OTHER, SELFPAY ==
[2022-06-09 06:40] LABS: COVID-19 Test Negative (Negative)
[2022-06-09 06:52] VITALS: BP 140/77; PULSE 65; RESP 18; TEMP 36.2; O2SAT 95; BMI 38.6
--- NOTE | 2022-06-09 06:57 | P.CONAN_ITS ---
[facility] Past Medical History Medical History (Updated 05/22/22 @ 07:23 by Cathryn Gallegos RN) Bipolar 1 disorder PTSD (post-traumatic stress disorder) Family History Family history of problems with anesthesia: No Surgical History Surgical History (Updated 05/22/22 @ 07:24 by Cathryn Gallegos RN) History of mandibular surgery History of Problems with Anesthesia: No Social History Social History Patient Tobacco Use Status: Current everyday Tobacco user Tobacco use type: Cigarette Advance Directives: No Advance Directives Information Provided: Yes Meds Allergies Allergy/AdvReac Type Severity Reaction Status Date / Time divalproex sodium Allergy Unknown Verified 05/22/22 06:13 [From Depakote] Exam Exam Date and Time: June 09, 2022 0657 Height,Weight and Vital Signs: Height 6 ft Weight 129.274 kg Last Vital Signs Temp 97.2 F 06/09/22 06:52 Pulse 65 06/09/22 06:52 Resp 18 06/09/22 06:52 BP 140/77 H 06/09/22 06:52 Pulse Ox 95 06/09/22 06:52 O2 Del Method 06/09/22 06:52 Pertinent Lab Results Pertinent Lab Results: Laboratory Tests 06/09/22 06:15 COVID-19 ([facility]) Negative COVID-19 Clin Com See Note Airway Mallampati Class: II (Permanent upper plate, caps front top) TM Dist: >3cm Neck ROM: Full Heart: rrr Lungs: cta Assessment and Plan Assessment Anesthesia Assessment: Anesthesia Plan Discussed and Chart Reviewed Final Anesthetic Review Family History of Problems with Anesthesia: No History of Problems with Anesthesia: No NPO: Yes ASA Class: III Final Preanesthetic Review: No Changes in Pt Med Stat, Meds/Allgs Chart Reviewed and Consent Obtained/Reviewed Patient Risk: Intermediate Procedure Risk: Intermediate Anesthetic Plan Anesthetic Plan: GA Disposition: Standard PACU
--- NOTE | 2022-06-09 07:54 | MHC.SHP ---
Pre-Procedural Eval Section A Date of Service: 06/09/22 The patient is an INPATIENT: No Changes since office visit: Yes Cold of Flu in the past 2 weeks, Yes New Medical Problems, Yes Changes in Medication and Yes Patient answered all questions The History & Physical has been completed within 30 days and I have reviewed it.: Yes Section B Chief Complaint: Major depressive disorder Allergies: Allergies Allergy/AdvReac Type Severity Reaction Status Date / Time divalproex sodium Allergy Unknown Verified 05/22/22 06:13 [From [facility]] Plan I have reviewed the history and physical and performed a pertinent physical examination on my patient. No changes have occurred unless specified.
--- NOTE | 2022-06-09 08:05 | HO.ECTPROC ---
ECT Procedure Note Diagnosis/Treatment Date of Service: 06/09/22 Diagnosis: Bipolar disorder Previous ECT Date: 06/07/22 Current Treatment Number: 8 Treatment: Series Interval Clinical Notes: The patient denies depression, no side effects with the previous ECT. ECT Settings Device: THYMATRON DGx Electrode Placement: Bifrontal Program/Pulse Width: 0.50 Energy Percent: 100 Seizure Duration By EEG (in seconds): 44 By Motor Observation (in seconds): 29 Medications Administration General Anesthetic: Etomidate (20) Muscle Relaxant: Succinylcholine (160) and Rocuronium (5) Ancillary Medications Analgesics: Torodol - Pre ECT Anti-emetics: Zofran - Pre ECT Cardiovascular Medications: Glycopyrrolate Miscillaneous Medications: Propofol Airway Management Airway Management: Bag Mask Ventilation Treatment Recommendations No Changes Recommended: No change Pt Tolerated Procedure w/o Issue: Yes
[2022-06-09 08:16] VITALS: BP 129/87; PULSE 73; RESP 19; TEMP 37.1; O2SAT 94
[2022-06-09 08:21] VITALS: BP 107/59; PULSE 70; RESP 12; O2SAT 97
[2022-06-09 08:26] VITALS: BP 115/69; PULSE 70; RESP 12; O2SAT 97
[2022-06-09 08:31] VITALS: BP 123/73; PULSE 78; RESP 16; O2SAT 94
[2022-06-09 08:46] VITALS: BP 114/71; PULSE 68; RESP 16; TEMP 37.1; O2SAT 94
== END 2022-06-09 09:21 | disposition home or self-care (01) ==
PROVIDERS: Visit Provider Psychiatry & Neurology Psychiatry
PROC: (CPT 90870; principal; 2022-06-09 08:00)
DX: F31.4 Bipolar disorder, current episode depressed, severe, without psychotic features (principal); F43.10 Post-traumatic stress disorder, unspecified; Z79.899 Other long term (current) drug therapy; Z88.8 Allergy status to other drugs, medicaments and biological substances; F17.210 Nicotine dependence, cigarettes, uncomplicated; Z20.822 Contact with and (suspected) exposure to COVID-19
CPT/HCPCS: 87635; 90870; J0330; J1885; J2250; J2405

== ENCOUNTER 2022-06-12 05:44 | Day surgery (SDC) | payer OTHER, SELFPAY ==
[2022-06-12] VITALS (7 sets, daily range): BP systolic 125–142; BP diastolic 71–89; PULSE 67–91; RESP 13–18; TEMP 36.2–36.4; O2SAT 94–97; BMI 33.3
[2022-06-12 06:39] LABS: COVID-19 Test Negative (Negative); IDNOW Serial# 16C4AD1C
--- NOTE | 2022-06-12 07:01 | P.HPSUR_ITS ---
Pre-Procedural Eval Section A Date of Service: 06/12/22 The patient is an INPATIENT: No Changes since office visit: No Cold of Flu in the past 2 weeks, No New Medical Problems, No Changes in Medication and No Patient answered all questions The History & Physical has been completed within 30 days and I have reviewed it.: Yes Section B Chief Complaint: Major depressive disorder Allergies: Allergies Allergy/AdvReac Type Severity Reaction Status Date / Time divalproex sodium Allergy Unknown Verified 05/22/22 06:13 [From [facility]] Plan I have reviewed the history and physical and performed a pertinent physical examination on my patient. No changes have occurred unless specified.
--- NOTE | 2022-06-12 07:16 | HO.ECTPROC ---
ECT Procedure Note Diagnosis/Treatment Date of Service: 06/12/22 Diagnosis: Bipolar disorder Previous ECT Date: 06/09/22 Current Treatment Number: 9 Treatment: Series Interval Clinical Notes: The patient reports no evidence of depression or side effects. ECT Settings Device: THYMATRON DGx Electrode Placement: Bifrontal Program/Pulse Width: 0.50 Energy Percent: 100 Seizure Duration By EEG (in seconds): 36 By Motor Observation (in seconds): 30 Medications Administration General Anesthetic: Etomidate (20) Muscle Relaxant: Succinylcholine (160) and Rocuronium (5) Ancillary Medications Analgesics: Torodol - Pre ECT Anti-emetics: Zofran - Pre ECT Cardiovascular Medications: Glycopyrrolate Miscillaneous Medications: Propofol Airway Management Airway Management: Bag Mask Ventilation Treatment Recommendations No Changes Recommended: No change Pt Tolerated Procedure w/o Issue: Yes
--- NOTE | 2022-06-12 07:56 | HO.ANESPROP2 ---
[facility] Past Medical History Medical History Bipolar 1 disorder PTSD (post-traumatic stress disorder) Functional capacity: independent ambulation Family History Family history of problems with anesthesia: No Surgical History Surgical History (Updated 05/22/22 @ 07:24 by Cathryn Gallegos RN) History of mandibular surgery History of Problems with Anesthesia: No Social History Social History Patient Tobacco Use Status: Current everyday Tobacco user Tobacco use type: Cigarette Advance Directives: No Advance Directives Information Provided: Yes Meds Allergies Allergy/AdvReac Type Severity Reaction Status Date / Time divalproex sodium Allergy Unknown Verified 05/22/22 06:13 [[facility] Exam Exam Date and Time: June 12, 2022 0756 Height,Weight and Vital Signs: Height 6 ft Weight 111.584 kg Last Vital Signs Temp 97.6 F 06/12/22 07:25 Pulse 72 06/12/22 07:40 Resp 13 06/12/22 07:40 BP 142/71 H 06/12/22 07:40 Pulse Ox 94 06/12/22 07:40 O2 Del Method 06/12/22 07:40 O2 Flow Rate 3 06/12/22 07:25 Pertinent Lab Results Pertinent Lab Results: Laboratory Tests 06/12/22 06:15 COVID-19 ([facility]) Negative COVID-19 Clin Com See Note Airway Mallampati Class: III TM Dist: >3cm Neck ROM: Full Heart: RRR Lungs: CTA Assessment and Plan Final Anesthetic Review Family History of Problems with Anesthesia: No History of Problems with Anesthesia: No Final Preanesthetic Review: No Changes in Pt Med Stat, Meds/Allgs Chart Reviewed, Consent Obtained/Reviewed and Anes Risks/Benef Reviewed Patient Risk: Intermediate Procedure Risk: Low Anesthetic Plan Anesthetic Plan: GA Disposition: Standard PACU
--- NOTE | 2022-06-12 07:57 | HO.POSTANES ---
Post Anesthesia Evaluation Post Anesthesia Evaluation Vital Signs: Vital Signs Temp Pulse Resp BP Pulse Ox O2 Del Method O2 Flow Rate 06/12/22 07:55 72 18 134/80 96 Room Air 06/12/22 07:40 72 13 142/71 H 94 Room Air 06/12/22 07:35 91 16 140/89 H 95 Room Air 06/12/22 07:30 81 16 141/80 H 95 Room Air 06/12/22 07:25 97.6 F 80 16 142/88 H 97 Nasal Cannula 3 06/12/22 06:32 97.5 F 76 18 125/77 95 Room Air Anesthesia: General Mental Status: Awake Pain Control: Satisfactory Nausea/Vomiting: None Hydration: Adequate Anesthesia-Related Issues: No Anes. Related Issues
== END 2022-06-12 09:00 | disposition home or self-care (01) ==
PROVIDERS: Visit Provider Psychiatry & Neurology Psychiatry
PROC: (CPT 90870; principal; 2022-06-12 07:00)
DX: F31.4 Bipolar disorder, current episode depressed, severe, without psychotic features (principal); F43.10 Post-traumatic stress disorder, unspecified; Z79.899 Other long term (current) drug therapy; Z88.8 Allergy status to other drugs, medicaments and biological substances; Z20.822 Contact with and (suspected) exposure to COVID-19; F17.210 Nicotine dependence, cigarettes, uncomplicated
CPT/HCPCS: 87635; 90870; J0330; J2405